=== PATIENT | female | born 1985 | race Caucasian/White ===

== ENCOUNTER 2021-02-11 20:39 | Emergency (ER) | payer BC, OTHER ==
[~2021-02-11] VITALS: Ht 160 cm; Wt 88.5 kg
[2021-02-11] MEDS ORDERED: PRILOSEC10 MG PO (21:09)
[2021-02-11] MEDS ORDERED: 24HR ALLERGY REL5 MG PO (21:10)
[2021-02-11 21:36] LABS: URINE BILIRUBIN NEGATIVE (Negative); URINE BLOOD 1+ (Negative); URINE CLARITY SL CLOUDY; URINE COLOR YELLOW; URINE GLUCOSE-RANDOM* NEGATIVE (Negative); URINE KETONES TRACE (Negative); URINE NITRITE-REFLEX NEGATIVE (Negative); URINE PROTEIN (DIPSTICK) NEGATIVE (Negative); URINE SPECIFIC GRAVITY 1.025 (1.005-1.035); URINE UROBILINOGEN 0.2 E.U./dl (0.2-1.0)
[2021-02-11 21:38] LABS: ABSOLUTE NEUTROPHILS 4.8 thou/uL (1.4-8.2); BASOPHILS 0.7 % (0.0-2.0); HEMATOCRIT 37.8 % (37.0-47.0); HEMOGLOBIN 12.9 gm/dL (12.0-15.0); LYMPHOCYTES 34.2 % (24.0-44.0); MCH 30.5 pg (26.0-34.0); MCHC 34.2 g/dL (28.0-37.0); MCV 89.3 fL (80.0-100.0); MONOCYTES 13.4 % (1.0-8.0); PLATELET COUNT 358 thou/uL (150-400); POLYS 47.7 % (36.0-66.0); RBC 4.24 mil/uL (4.20-5.00); RDW 13.4 % (10.5-14.5); WBC 10.1 thou/uL (4.0-11.0)
[2021-02-11 21:48] LABS: URINE LEUKOCYTES-REFLEX 1+ (Negative)
[2021-02-11 21:49] LABS: BUN 14 mg/dL (7-18); CALCIUM 8.9 mg/dL (8.5-10.1); CHLORIDE 103 mmol/L (98-107); CREATININE 0.8 mg/dL (0.6-1.0); GLUCOSE 113 mg/dL (74-106); POTASSIUM 3.3 mmol/L (3.5-5.1); SODIUM 140 mmol/L (136-145); TROPONIN-I <0.06 ng/mL (<0.06)
[2021-02-11 21:50] LABS: SQUAMOUS 4-10 Moderate /LPF (0-3); URINE RBC 3-10 Few /HPF (NONE SEEN); URINE WBC-REFLEX 6-15 Few /HPF (0-5)
[2021-02-11 21:51] LABS: CASTS None Seen /LPF (None Seen); CRYSTALS None Seen /LPF (None Seen); MUCUS 0-3 Light strn/LPF (None Seen)
[2021-02-11 21:54] LABS: ANION GAP 10 mmol/L (7-16); CO2 27 mmol/L (21-32)
[2021-02-11] MEDS ORDERED: CEPHALEXIN500 MG PO (22:40)
[2021-02-11 23:11] VITALS: BP 119/63
--- NOTE | 2021-02-12 07:27 | EKG ---
[address] [place] [address] ELECTROCARDIOGRAM REPORT Name: SHELLEY NAGEL 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 02/12/21725 41 41 Neal Ramos MD, FACC /EPI
== END 2021-02-11 23:12 | disposition home or self-care (01) ==
LOC: ER 20:39
PROVIDERS: Nurse Practitioner
DX: I10 Essential (primary) hypertension (principal); N39.0 Urinary tract infection, site not specified; R07.89 Other chest pain; K21.9 Gastro-esophageal reflux disease without esophagitis; Z79.899 Other long term (current) drug therapy

== ENCOUNTER → 2021-04-08 | Outpatient (CLI) | payer BC, OTHER ==
[~2021-04-08] MED LIST: 24HR ALLERGY REL5 MG PO; CEPHALEXIN500 MG PO; PRILOSEC10 MG PO
== END ==
LOC: SJCVCIMAG 10:41
PROVIDERS: ATTEND Internal Medicine Cardiovascular Disease
DX: I08.1 Rheumatic disorders of both mitral and tricuspid valves (principal); I10 Essential (primary) hypertension; R00.2 Palpitations; R07.89 Other chest pain